=== PATIENT | female | born 1990 | race Caucasian/White ===

== ENCOUNTER 2018-03-29 16:16 | Emergency (ER) | payer OTHER ==
[2018-03-29 16:45] VITALS: BP 113/65
--- NOTE | 2018-03-29 16:57 | UC ---
Abdominal Pain Female HPI - HPI Summary HPI Summary: Pt c/o sudden onset of nausea and vomiting X1 this morning. Pt now c/o RLQ pain that began after vomiting once this morning. - History of Current Complaint Stated Complaint: VOMITING Time Seen by Provider: 03/29/18 16:33 Hx Obtained From: Patient Hx Last Menstrual Period: 03/23/18 ?: No Onset/Duration: Sudden Onset, Still Present Timing: Constant Severity Initially: Moderate Severity Currently: Moderate Pain Intensity: 9 Location: Discrete At: RLQ Radiates: No Character: Aching, Dull Alleviating Factor(s): Nothing Associated Signs and Symptoms: Positive: Nausea, Vomiting - Risk Factors Ectopic Risk Factor: Negative Ovarian Torsion Risk Factor: Reproductive Age Allergies/Adverse Reactions: Allergies Allergy/AdvReac Type Severity Reaction Status Date / Time latex Allergy Mild Rash Verified 03/29/18 16:53 amoxicillin Allergy Swelling Verified 03/29/18 16:53 Of Face, and rash Home Medications: Home Medications DULoxetine DR CAP* [Cymbalta CAP*] 30 mg PO DAILY 03/29/18 [History Confirmed ] Gabapentin CAP(*) [Neurontin 300 CAP(*)] 300 mg PO TID 03/29/18 [History Confirmed 03/29/18] PMH/Surg Hx/FS Hx/Imm Hx Previously Healthy: Yes Other History Of: Negative For: HIV, Hepatitis B, Hepatitis C - Surgical History Surgical History: Yes Surgery Procedure, Year, and Place: T&A. ear surgery. Gallbladder surgery - Family History Known Family History: Positive: None, Cardiac Disease, Hypertension, Diabetes, Other - copd/asthma - Social History Occupation: Employed Full-time Lives: With Family Alcohol Use: None Substance Use Type: None Smoking Status (MU): Former Smoker Type: Cigarettes Amount Used/How Often: 1/2 ppd Length of Time of Smoking/Using Tobacco: on & off since age 17 Have You Smoked in the Last Year: Yes When Did the Patient Quit Smoking/Using Tobacco: 2016 Household Exposure Type: Cigarettes - Immunization History Most Recent Influenza Vaccination: 2013 Review of Systems Constitutional: Negative Skin: Negative Eyes: Negative ENT: Negative Respiratory: Negative Cardiovascular: Negative Gastrointestinal: Abdominal Pain, Vomiting, Nausea Genitourinary: Negative Motor: Negative Neurovascular: Negative Musculoskeletal: Negative Neurological: Negative Psychological: Negative Is Patient Immunocompromised?: No All Other Systems Reviewed And Are Negative: Yes Physical Exam Triage Information Reviewed: Yes Appearance: Well-Appearing Vital Signs: Initial Vital Signs Temp 99.5 F 03/29/18 16:37 Pulse 99 03/29/18 16:37 Resp 16 03/29/18 16:37 BP 113/65 03/29/18 16:37 Pulse Ox 100 03/29/18 16:37 Vital Signs Reviewed: Yes Eye Exam: Normal ENT Exam: Normal Dental Exam: Other - does not have any teeth Neck exam: Normal Respiratory: Positive: Normal breath sounds Cardiovascular Exam: Normal Abdomen Description: Positive: Other: - RLQ pain Musculoskeletal Exam: Normal Neurological Exam: Normal Psychological Exam: Normal Skin Exam: Normal Abd Pain Female Course/Dx - Course Course Of Treatment: I discussed with the pt the need to seek further evaluation and testing if RLQ pain worsens. Pt had BM this morning. - Differential Dx/Diagnosis Differential Diagnosis: Appendicitis, Other - nausea and vomiting abdominal pain Provider Diagnoses: nausea and vomiting. abdominal pain Discharge - Sign-Out/Discharge Documenting (check all that apply): Discharge/Admit/Transfer - Discharge Plan Condition: Stable Disposition: HOME Patient Education Materials: Acute Nausea and Vomiting (ED), Acute Abdominal Pain (ED) Forms: *Work Release Referrals: CAILIN Diaz [Primary Care Provider] - If Needed - Billing Disposition and Condition Condition: STABLE Disposition: HOME
== END 2018-03-29 17:07 | disposition home or self-care (01) ==
LOC: UCCORT 16:16
DX: R11.2 Nausea with vomiting, unspecified (principal); R10.31 Right lower quadrant pain; Z88.0 Allergy status to penicillin; Z91.040 Latex allergy status; Z87.891 Personal history of nicotine dependence
CPT/HCPCS: 99211; G0463

== ENCOUNTER 2019-06-14 11:09 | Emergency (ER) | payer OTHER ==
[2019-06-14 11:28] VITALS: BP 112/75
--- NOTE | 2019-06-14 11:46 | UC ---
General HPI - HPI Summary HPI Summary: per triage, 1) ~6mm flap like laceration to tip of left fifth toe that happened four days ago when she tripped and scrapped toe against concrete ground. Patient has been using H2O2 and warm, soapy soaks to keep the area clean. She is concerned about infection. 2) Intermittent sharp right lower quadrant pain "especially when I bend" for one week. Appendicitis was ruled out at [facility] ED three days ago. Patient has not made a follow-up appointment with her PCP. Patient is concerned about ovarian cysts because her mother told her it runs in the family. pt notes some redness to the top of the L 5th toe. no joint pain, fever. pt went to the ER a few days ago for the episodic abdominal pains and had a CT, labs, urine and test all of which we negative. no fever, n/v/d or dysuria. no vaginal discharge. - History of Current Complaint Chief Complaint: UCLaceration Stated Complaint: LT FOOT LACERATION, RT SIDE ABD DISCOMFORT Time Seen by Provider: 06/14/19 11:29 Hx Obtained From: Patient Hx Last Menstrual Period: "light period ... like two weeks ago" Pain Intensity: 5 - Allergy/Home Medications Allergies/Adverse Reactions: Allergies Allergy/AdvReac Type Severity Reaction Status Date / Time latex Allergy Mild Rash Verified 06/14/19 11:21 amoxicillin Allergy Swelling Verified 06/14/19 11:21 Of Face, and rash Home Medications: Home Medications ARIPiprazole TAB* [Abilify TAB*] 5 mg PO DAILY 06/14/19 [History Confirmed 01/01] Ibuprofen TAB* [Motrin TAB* 600 MG] 600 mg PO Q8H PRN 06/14/19 [History Confirmed 06/14/19] PMH/Surg Hx/FS Hx/Imm Hx Psychological History: Depression Other History Of: Negative For: HIV, Hepatitis B, Hepatitis C - Surgical History Surgical History: Yes Surgery Procedure, Year, and Place: Cholecystectomy, 2014, [place]; T&A and Ear Tubes, ~2001, - Family History Known Family History: Positive: None, Cardiac Disease, Hypertension, Diabetes, Other - copd/asthma - Social History Alcohol Use: None Substance Use Type: Marijuana Substance Use Comment - Amount & Last Used: twice weekly Smoking Status (MU): Light Every Day Tobacco Smoker Type: Cigarettes Amount Used/How Often: ~1/4 - 1/2 PPD Length of Time of Smoking/Using Tobacco: On and Off Since Age 17 Have You Smoked in the Last Year: Yes When Did the Patient Quit Smoking/Using Tobacco: 2016 Household Exposure Type: Cigarettes - Immunization History Most Recent Influenza Vaccination: 2013 Most Recent Tetanus Shot: 2018 Review of Systems All Other Systems Reviewed And Are Negative: Yes Constitutional: Negative: Fever, Chills Skin: Positive: Rash - L 5th toe redness Gastrointestinal: Positive: Abdominal Pain - episodic. Negative: Vomiting, Diarrhea, Nausea Genitourinary: Negative: Dysuria, Frequency, Urgency, Vaginal/Penile Discharge, Ulceration/Lesion Musculoskeletal: Negative: Arthralgia Physical Exam Triage Information Reviewed: Yes Appearance: Well-Appearing Vital Signs: Initial Vital Signs Temp 98.6 F 06/14/19 11:19 Pulse 108 06/14/19 11:19 Resp 16 06/14/19 11:19 BP 112/75 06/14/19 11:19 Pulse Ox 100 06/14/19 11:19 Vital Signs Reviewed: Yes Eyes: Positive: Conjunctiva Clear ENT: Positive: Normal ENT inspection Neck: Positive: Supple, Nontender, No Lymphadenopathy Respiratory: Positive: Lungs clear Cardiovascular: Positive: RRR Abdomen Description: Positive: Nontender, No Organomegaly, Soft. Negative: Distended, Guarding Bowel Sounds: Positive: Present Musculoskeletal: Positive: ROM Intact Neurological: Positive: Alert Psychological: Positive: Age Appropriate Behavior Skin Exam: Normal, Other - Small avulsion flap tip L 5th toe and mild erythema dorsal surface. S/V/M intact. rest of foot unremarkabel. Course/Dx - Differential Dx - Multi-Symptom Differential Diagnoses: Other - no current abdominal s/s's. extensive workup by ER will refer to pcp. the toe has a mild erythema thus will tx for skin infection. - Diagnoses Provider Diagnosis: Skin infection Discharge - Sign-Out/Discharge Documenting (check all that apply): Patient Departure All imaging exams completed and their final reports reviewed: No Studies - Discharge Plan Condition: Stable Disposition: HOME Prescriptions: DOXYcycline CAP(*) [DOXYcycline 100MG CAP(*)] 100 mg PO BID 7 Days #14 cap Patient Education Materials: Cellulitis (DC), Abdominal Pain (ED) Referrals: CAILIN Diaz [Primary Care Provider] - 3 Days - Billing Disposition and Condition Condition: STABLE Disposition: Home
== END 2019-06-14 12:01 | disposition home or self-care (01) ==
LOC: UCCORT 11:09
DX: S91.115A Laceration without foreign body of left lesser toe(s) without damage to nail, initial encounter (principal); L08.9 Local infection of the skin and subcutaneous tissue, unspecified; F17.210 Nicotine dependence, cigarettes, uncomplicated
CPT/HCPCS: 99212; G0463